=== PATIENT | male | born 1975 | race Caucasian/White ===

== ENCOUNTER 2018-04-26 17:20 | Emergency (ER) | payer OTHER ==
[2018-04-26 17:28] VITALS: BP 128/84; PULSE 87; TEMP 99; BMI 25.0
--- NOTE | 2018-04-26 17:45 | PDOC ---
History of Present Illness - History of Present Illness Initial Comments: 04/26/18 18:06 The patient is a 42 year old male with a significant PMH of HLD, HTN, and asthma who presents to the emergency department with right lower back pain and right hip pain today. The patient states he was running to his car when he experienced a sudden onset of right leg shaking followed by a sharp pain. The patient denies any bruising, rashes, or injuries to the right leg. The patient denies pain to any other part of his body. The patient denies chest pain, shortness of breath, headache and dizziness. Denies fever, chills, nausea, vomit, diarrhea and constipation. Denies dysuria, frequency, urgency and hematuria. Allergies: NKA Past surgical history: None reported. Social history: No reported alcohol, drug, or cigarette use. <Anna Moon - Last Filed: 04/26/18 18:06> <Shanta Kelly - Last Filed: 04/26/18 19:02> - General Chief Complaint: Pain Stated Complaint: RT LOWER BACK, RT LOWER ABD Time Seen by Provider: 04/26/18 17:25 Past History <Anna Moon - Last Filed: 04/26/18 18:06> - Past Medical History Asthma: Yes COPD: No HTN: Yes Hypercholesterolemia: Yes - Suicide/Smoking/Psychosocial Hx Smoking Status: No Smoking History: Never smoked Years of Tobacco Use: 0 Have you smoked in the past 12 months: Yes Number of Cigarettes Smoked Daily: 1 Cigars Per Day: 0 Information on smoking cessation initiated: No Hx Alcohol Use: (weekly) <Shanta Kelly - Last Filed: 04/26/18 19:02> - Past Medical History Allergies/Adverse Reactions: Allergies Allergy/AdvReac Type Severity Reaction Status Date / Time peanut Allergy Verified 04/26/18 17:54 PEANUTS Allergy Uncoded 04/26/18 17:22 Home Medications: Ambulatory Orders NK [No Known Home Medication] 04/26/18 Review of Systems - Review of Systems Able to Perform ROS?: Yes Comments:: 04/26/18 18:01 GENERAL/CONSTITUTIONAL: No fever or chills. No weakness. HEAD, EYES, EARS, NOSE AND THROAT: No change in vision. No ear pain or discharge. No sore throat. CARDIOVASCULAR: No chest pain or shortness of breath. RESPIRATORY: No cough, wheezing, or hemoptysis. GASTROINTESTINAL: No nausea, vomiting, diarrhea or constipation. GENITOURINARY: No dysuria, frequency, or change in urination. MUSCULOSKELETAL: (+) Right lower back and right hip pain. No neck or back pain. SKIN: No rash NEUROLOGIC: No headache, vertigo, loss of consciousness, or change in strength/ sensation. ENDOCRINE: No increased thirst. No abnormal weight change. HEMATOLOGIC/LYMPHATIC: No anemia, easy bleeding, or history of blood clots. ALLERGIC/IMMUNOLOGIC: No hives or skin allergy. <Anna Moon - Last Filed: 04/26/18 18:06> *Physical Exam - Vital Signs Last Vital Signs Temp Pulse Resp BP Pulse Ox 99 F 87 18 128/84 100 04/26/18 17:20 04/26/18 17:20 04/26/18 17:20 04/26/18 17:20 04/26/18 17:20 - Physical Exam Comments: 04/26/18 18:01 GENERAL: Awake, alert, and fully oriented, in no acute distress HEAD: No signs of trauma EYES: PERRLA, EOMI, sclera anicteric, conjunctiva clear ENT: Auricles normal inspection, hearing grossly normal, nares patent, oropharynx clear without exudates. Moist mucosa NECK: Normal ROM, supple, no lymphadenopathy, JVD, or masses LUNGS: Breath sounds equal, clear to auscultation bilaterally. No wheezes, and no crackles HEART: Regular rate and rhythm, normal S1 and S2, no murmurs, rubs or gallops ABDOMEN: Soft, nontender, normoactive bowel sounds. No guarding, no rebound. No masses EXTREMITIES: (+) Tenderness to the right groin worse with external rotation of the pelvis. (+) Tenderness to the ASIS. No edema. No clubbing or cyanosis. No cords, erythema, or tenderness NEUROLOGICAL: Cranial nerves II through XII grossly intact. Normal speech SKIN: Warm, Dry, normal turgor, no rashes or lesions noted. <Anna Moon - Last Filed: 04/26/18 18:06> - Vital Signs Last Vital Signs Temp Pulse Resp BP Pulse Ox 99 F 87 18 128/84 100 04/26/18 17:20 04/26/18 17:20 04/26/18 17:20 04/26/18 17:20 04/26/18 17:20 <Shanta Kelly - Last Filed: 04/26/18 19:02> *DC/Admit/Observation/Transfer - Attestations Scribe Attestion: 04/26/18 18:07 Documentation prepared by Anna Moon, acting as biomedical field service engineer for Shanta Kelly MD. <Anna Moon - Last Filed: 04/26/18 18:06> - Discharge Dispostion Decision to Admit order: No <Shanta Kelly - Last Filed: 04/26/18 19:02> Diagnosis at time of Disposition: Groin strain Qualifiers: Encounter type: initial encounter Laterality: right Qualified Code(s): S76.211A - Strain of adductor muscle, fascia and tendon of right thigh, initial encounter - Discharge Dispostion Disposition: HOME Condition at time of disposition: Stable
[2018-04-26] MEDS ORDERED: IBUPROFEN 600 MG TABLET (FP) PO ONE ×2 (17:52→18:01)
== END 2018-04-26 19:18 | disposition home or self-care (01) ==
LOC: FER 17:20
DX: S76.211A Strain of adductor muscle, fascia and tendon of right thigh, initial encounter (principal); X58.XXXA Exposure to other specified factors, initial encounter; Y93.89 Activity, other specified; Y92.9 Unspecified place or not applicable; E78.5 Hyperlipidemia, unspecified; I10 Essential (primary) hypertension; J45.909 Unspecified asthma, uncomplicated; E78.00 Pure hypercholesterolemia, unspecified
CPT/HCPCS: 73523-TC-FY; 99283-25

== ENCOUNTER 2019-09-16 18:32 | Emergency (ER) | payer OTHER ==
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
[2019-09-16 19:16] VITALS: BP 130/95; PULSE 80; TEMP 98.4; BMI 25.3
[2019-09-16] MEDS ORDERED: KETOROLAC TROMETHAMINE 60 MG/2 ML VIAL IM ONE (20:06)
[2019-09-16] MEDS ORDERED: KETOROLAC TROMETHAMINE 60 MG/2 ML VIAL ONE (20:08)
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
== END 2019-09-16 21:01 | disposition home or self-care (01) ==
LOC: FER 18:32
PROC: 3E0233Z Introduction of Anti-inflammatory into Muscle, Percutaneous Approach (ICD-10-PCS; principal; 2019-09-16)
DX: S39.012A Strain of muscle, fascia and tendon of lower back, initial encounter (principal); X58.XXXA Exposure to other specified factors, initial encounter; Y93.9 Activity, unspecified; Y92.9 Unspecified place or not applicable; I10 Essential (primary) hypertension; E78.00 Pure hypercholesterolemia, unspecified; J45.909 Unspecified asthma, uncomplicated; F17.210 Nicotine dependence, cigarettes, uncomplicated; Z91.010 Allergy to peanuts; Z88.6 Allergy status to analgesic agent
CPT/HCPCS: 81003; 99282-25

== ENCOUNTER 2023-05-11 16:55 | Emergency (ER) | payer OTHER ==
[2023-05-11 17:14] VITALS: TEMP 98.2; BMI 28.3
[2023-05-11] MEDS ORDERED: KETOROLAC TROMETHAMINE 15 MG/ML VIAL IM ONE (18:05)
[2023-05-11] MEDS ORDERED: LIDOCAINE 5% TOPICAL PATCH TP ONE (18:07)
[2023-05-11] MEDS ORDERED: LIDOCAINE 5% TOPICAL PATCH ONE (18:34)
[2023-05-11] MEDS ORDERED: KETOROLAC TROMETHAMINE 15 MG/ML VIAL ONE (18:34)
[2023-05-11 20:16] VITALS: RESP 20
[2023-05-11] MEDS ORDERED: LIDOCAINE PATCH REMOVAL MC SCH (22:00)
== END 2023-05-11 21:58 | disposition home or self-care (01) ==
LOC: FER 16:55
PROC: 3E0233Z Introduction of Anti-inflammatory into Muscle, Percutaneous Approach (ICD-10-PCS; principal; 2023-05-11)
DX: M54.50 Low back pain, unspecified (principal); S39.012A Strain of muscle, fascia and tendon of lower back, initial encounter; X50.0XXA Overexertion from strenuous movement or load, initial encounter
CPT/HCPCS: 72131-TC; 99284-25

== ENCOUNTER 2024-02-16 22:29 | Emergency (ER) | payer OTHER ==
[2024-02-16 22:37] VITALS: BP 125/96; PULSE 82; RESP 18; TEMP 98.5; BMI 28.3
[2024-02-16] MEDS ORDERED: KETOROLAC TROMETHAMINE 60 MG/2 ML VIAL ONE (23:19)
[2024-02-16] MEDS: KETOROLAC TROMETHAMINE 60 MG/2 ML VIAL IM ONE (23:21)
== END 2024-02-16 23:56 | disposition home or self-care (01) ==
LOC: FER 22:29
PROC: 3E0233Z Introduction of Anti-inflammatory into Muscle, Percutaneous Approach (ICD-10-PCS; principal; 2024-02-16)
DX: M54.6 Pain in thoracic spine (principal); R10.9 Unspecified abdominal pain
CPT/HCPCS: 81003; 87086; 99284-25